=== PATIENT | male | born 1970 | race Caucasian/White ===

== ENCOUNTER → 2022-09-28 14:00 | Outpatient (BNVA) | payer MEDICAID, SELFPAY | PROVIDERS: PCP Nurse Practitioner; Visit Provider Nurse Practitioner Family | DX: S99.921A Unspecified injury of right foot, initial encounter (principal); W22.8XXA Striking against or struck by other objects, initial encounter | CPT/HCPCS: 73610 ==

== ENCOUNTER → 2025-03-14 11:27 | Outpatient (BNVA) | payer OTHER, SELFPAY | PROVIDERS: PCP Nurse Practitioner; Visit Provider Nurse Practitioner | DX: M89.8X6 Other specified disorders of bone, lower leg (principal); M25.861 Other specified joint disorders, right knee | CPT/HCPCS: 73562 ==